=== PATIENT | female | born 1960 | race African-American/Black ===

== ENCOUNTER 2017-07-14 10:38 | Emergency (ER) | payer MEDICARE | END 2017-07-14 12:21 | disposition home or self-care (01) | LOC: ER/OP 10:38 | DX: B07.0 Plantar wart (principal); M25.511 Pain in right shoulder; E11.9 Type 2 diabetes mellitus without complications; E78.5 Hyperlipidemia, unspecified; I10 Essential (primary) hypertension | CPT/HCPCS: 99283 ==

== ENCOUNTER 2017-08-16 07:51 | Emergency (ER) | payer MEDICARE ==
--- NOTE | 2017-08-16 09:45 | RAD ---
RIGHT HIP 2 VIEWS: HISTORY: Right hip injury. FINDINGS: There is mild joint space narrowing with a moderate degree of osteophytosis and subchondral sclerosis . Femoral head contours are maintained. Enthesophytes arise from the greater and lesser trochanters . No acute fracture or dislocation are apparent. Phleboliths project over the pelvis. IMPRESSION: Osteoarthritis right hip. POS: [facility]
--- NOTE | 2017-08-16 09:45 | RAD ---
RIGHT SHOULDER 3 VIEWS: HISTORY: Right shoulder pain. COMPARISON: 11/21/11. FINDINGS: Acromioclavicular and glenohumeral alignment are maintained. There is prominent osteophytosis of eac h joint. No acute fracture, dislocation, or aggressive osseous erosions. IMPRESSION: Osteoarthritis right shoulder. POS: [facility]
== END 2017-08-16 10:41 | disposition home or self-care (01) ==
LOC: ERS 07:51
DX: M19.011 Primary osteoarthritis, right shoulder (principal); M16.11 Unilateral primary osteoarthritis, right hip; E11.40 Type 2 diabetes mellitus with diabetic neuropathy, unspecified; E78.5 Hyperlipidemia, unspecified; I25.2 Old myocardial infarction; F41.9 Anxiety disorder, unspecified; Z79.4 Long term (current) use of insulin; W17.89XA Other fall from one level to another, initial encounter

== ENCOUNTER 2017-12-24 08:15 | Emergency (ER) | payer MEDICARE ==
--- NOTE | 2017-12-24 09:57 | RAD ---
THREE VIEWS OF THE RIGHT 4TH FINGER: DATE: 12/24/17. COMPARISON: None. HISTORY: Right 4th finger pain for 3 weeks, injury. FINDINGS: Multifocal degenerative changes noted involving the 2nd and 3rd metacarpophalangeal joints as well as the 2nd through 4th proximal and distal interphalangeal joints. There is an osseous density along the dorsal aspect of the 4th distal interphalangeal joint suggestin g a small fracture involving the dorsal base of the 4th distal phalanx with proximal retraction, like ly associated with pull from the extensor tendon insertion. Orthopedic consultation may be beneficial. IMPRESSION: Small chip fracture along the dorsal aspect of the 4th distal interphalangeal joint, likely emanating from the base of the 4th distal phalanx with proximal retraction. POS: [facility]
== END 2017-12-24 09:57 | disposition home or self-care (01) ==
LOC: ERS 08:15
DX: S62.634A Displaced fracture of distal phalanx of right ring finger, initial encounter for closed fracture (principal); E11.40 Type 2 diabetes mellitus with diabetic neuropathy, unspecified; E78.5 Hyperlipidemia, unspecified; I25.2 Old myocardial infarction; F41.9 Anxiety disorder, unspecified; Z79.4 Long term (current) use of insulin; W22.8XXA Striking against or struck by other objects, initial encounter

== ENCOUNTER 2018-04-25 11:36 | Emergency (ER) | payer MEDICARE ==
[2018-04-25 12:10] LABS: #Basophils 0.1 thou/uL (0.0-0.2); #Eosinphils 0.1 thou/uL (0.0-0.7); #Lymphocytes 1.9 thou/uL (1.20-3.40); #Monocytes 0.3 thou/uL (0.11-0.59); #Neutrophils 1.6 thou/uL (1.40-6.50); %Basophils 1.9 % (0.0-1.0); %Eosinophils 1.5 % (0.0-10.0); %Lymphocytes 48.4 % (21.0-51.0); %Monocytes 7.4 % (0.0-10.0); %Neutrophils 40.8 % (42.0-75.0); Hemoglobin 11.7 g/dL (12.0-16.0); Mean Corpuscular HGB CONC 32.4 g/dL (32.0-36.0); Mean Corpuscular Hemoglobin 28.1 pg (27.0-31.0); Mean Corpuscular Volume 86.7 fL (78.0-98.0); Mean Platelet Volume 7.6 fL (7.4-10.4); Platelet Count 255 thou/uL (130-400); RBC Distribution Width 13.2 % (11.5-14.5); Red Blood Cell (RBC) Count 4.15 mill/uL (4.20-5.40); White Blood Cell (WBC) Count 3.9 thou/uL (4.8-10.8)
[2018-04-25 12:33] LABS: ALT (SGPT) 45 U/L (8-55); AST (SGOT) 47 U/L (5-34); Albumin 4.1 g/dL (3.5-5.0); Alkaline Phosphatase 70 U/L (40-150); Anion Gap 15 mmol/L (10-20); BUN (Urea Nitrogen) 7 mg/dL (9.8-20.1); Bilirubin, Total 0.2 mg/dL (0.2-1.2); CK (CPK) 259 U/L (29-168); Calc. Creatinine Clearance 0 mL/min (70-130); Calcium 9.3 mg/dL (7.8-10.44); Carbon Dioxide 19 mmol/L (22-29); Chloride 105 mmol/L (98-107); Estimated GFR-MDRD 82; Globulin 3.3 g/dL (2.4-3.5); Glucose 409 mg/dL (70-105); Lipase 36 U/L (8-78); Protein, Total 7.4 g/dL (6.0-8.3); Sodium 135 mmol/L (136-145)
[2018-04-25 12:37] LABS: CKMB 1.5 ng/mL (0-6.6); Troponin I Less than 0.010 ng/mL (< 0.028)
--- NOTE | 2018-04-25 12:49 | RAD ---
PORTABLE CHEST: Date: 04/25/18 PROVIDED CLINICAL HISTORY: Chest pain. FINDINGS: Comparison made with the study dated 06/15/16. Cardiac silhouette is mildly prominent, likely at least partially on the basis of portable technique. Median sternotomy changes are seen. No focal consolidation, pleural fluid, or pneumothorax apparent. IMPRESSION: No evidence for an acute cardiopulmonary process. POS: [facility]
[2018-04-25 14:03] LABS: Troponin I Less than 0.010 ng/mL (< 0.028)
--- NOTE | 2018-05-02 23:07 | EKG ---
Test Reason : Blood Pressure : / mmHG Vent. Rate : 086 BPM Atrial Rate : 086 BPM P-R Int : 154 ms QRS Dur : 082 ms QT Int : 392 ms P-R-T Axes : 038 -32 -36 degrees QTc Int : 469 ms Normal sinus rhythm Left axis deviation RSR' or QR pattern in V1 suggests right ventricular conduction delay Nonspecific T wave abnormality Prolonged QT Abnormal ECG Confirmed by STACI VEGA ([id number]), online editor ROBERT CALZADA ([id number]) on 05/02/2018 11:06:52 PM Referred By: Confirmed By:STACI VEGA
== END 2018-04-25 14:49 | disposition home or self-care (01) ==
LOC: ERS 11:36
DX: R07.9 Chest pain, unspecified (principal); R55 Syncope and collapse; E78.5 Hyperlipidemia, unspecified; E11.42 Type 2 diabetes mellitus with diabetic polyneuropathy; F41.9 Anxiety disorder, unspecified; I25.2 Old myocardial infarction; Z79.4 Long term (current) use of insulin
CPT/HCPCS: 36415; 71045; 80053; 82550; 82553; 83690; 84484; 85025; 93005

== ENCOUNTER 2018-07-06 09:39 | Emergency (ER) | payer MEDICARE ==
[2018-07-06 11:08] LABS: ALT (SGPT) 41 U/L (8-55); AST (SGOT) 42 U/L (5-34); Albumin 4.2 g/dL (3.5-5.0); Alkaline Phosphatase 63 U/L (40-150); Anion Gap 13 mmol/L (10-20); BUN (Urea Nitrogen) 7 mg/dL (9.8-20.1); Bilirubin, Total 0.4 mg/dL (0.2-1.2); Calc. Creatinine Clearance 0 mL/min (70-130); Calcium 9.2 mg/dL (7.8-10.44); Carbon Dioxide 24 mmol/L (22-29); Chloride 106 mmol/L (98-107); Estimated GFR-MDRD Greater than 90; Globulin 3.1 g/dL (2.4-3.5); Glucose 182 mg/dL (70-105); Potassium 3.6 mmol/L (3.5-5.1); Protein, Total 7.3 g/dL (6.0-8.3); Sodium 139 mmol/L (136-145)
[2018-07-06 11:14] LABS: Band 1 % (5-11); Eosinophils 3 % (0-10); Hemoglobin 11.3 g/dL (12.0-16.0); Lymphocytes 56 % (21-51); MDiff Complete? YES; Mean Corpuscular HGB CONC 33.3 g/dL (32.0-36.0); Mean Corpuscular Volume 84.1 fL (78.0-98.0); Mean Platelet Volume 7.5 fL (7.4-10.4); Monocytes 1 % (0-10); Neutrophil 37 % (42-75); PLT Morphology Comment Appears Adequate; Platelet Count 227 thou/uL (130-400); Polychromasia SLIGHT = 2-3 cells (100X) (0-2/hpf); RBC Distribution Width 12.9 % (11.5-14.5); Reactive Lymphocytes 1 % (0-10); Red Blood Cell (RBC) Count 4.03 mill/uL (4.20-5.40); White Blood Cell (WBC) Count 3.8 thou/uL (4.8-10.8)
--- NOTE | 2018-07-06 11:27 | RAD ---
LEFT FOOT 3 VIEWS: Date: 07/06/18 INDICATION: Healing ulcer on bottom of foot. COMPARISON: None. FINDINGS: The second through fourth digits are held in hyperextension at the MTP joints and flexion at the IP j oints, making evaluation somewhat difficult of these respective digits. There is smooth cortical thic kening involving the distal fourth metatarsal shaft, likely reflecting sequelae of healed injury. No acute fracture is grossly evident. Lisfranc alignment is preserved. An accessory ossicle is seen kaitlynn cent to the cuboid. There is prominent enthesopathic change off the calcaneus. No destructive osteoly sis is grossly evident. IMPRESSION: No acute abnormality. POS: [facility]
== END 2018-07-06 12:05 | disposition home or self-care (01) ==
LOC: ERS 09:39
DX: E11.621 Type 2 diabetes mellitus with foot ulcer (principal); I25.10 Atherosclerotic heart disease of native coronary artery without angina pectoris; I25.2 Old myocardial infarction; E11.40 Type 2 diabetes mellitus with diabetic neuropathy, unspecified; E78.5 Hyperlipidemia, unspecified; F41.9 Anxiety disorder, unspecified; L97.529 Non-pressure chronic ulcer of other part of left foot with unspecified severity
CPT/HCPCS: 36415; 80053; 80061; 85025; 86140

== ENCOUNTER 2018-07-31 08:50 | Emergency (ER) | payer MEDICARE | END 2018-07-31 10:54 | disposition home or self-care (01) | LOC: ERS 08:50 | DX: J30.9 Allergic rhinitis, unspecified (principal); J06.9 Acute upper respiratory infection, unspecified; I25.10 Atherosclerotic heart disease of native coronary artery without angina pectoris; I25.2 Old myocardial infarction; E11.40 Type 2 diabetes mellitus with diabetic neuropathy, unspecified; E78.5 Hyperlipidemia, unspecified; F41.9 Anxiety disorder, unspecified | CPT/HCPCS: 99283 ==

== ENCOUNTER 2018-11-06 14:33 | Outpatient (CLI) | payer MEDICARE ==
--- NOTE | 2018-11-06 15:19 | MMO ---
Bilateral MAMMO Bilat Screen [facility]. CLINICAL HISTORY: Patient is 58 years old and is seen for screening. The patient has no family history of breast cancer. The patient has no personal history of cancer. The patient has a history of left Excisional Biopsy in 2016 - benign. VIEWS: The views performed were: bilateral craniocaudal; bilateral craniocaudal with tomosynthesis; bilateral mediolateral oblique; and bilateral mediolateral oblique with tomosynthesis. FILMS COMPARED: The present examination has been compared to prior imaging studies performed at [facility] on 04/13/2012, 09/14/2013, 07/05/2015, 08/24/2015 and 07/14/2017. MAMMOGRAM FINDINGS: There are scattered fibroglandular densities. Finding 1: There are stable post operative changes seen in the left breast. Finding 2: There are stable benign appearing calcifications seen in both breasts. There are no suspicious masses, suspicious calcifications, or new areas of architectural distortion. IMPRESSION: THERE IS NO MAMMOGRAPHIC EVIDENCE OF MALIGNANCY. A ROUTINE FOLLOW-UP MAMMOGRAM IN 1 YEAR IS RECOMMENDED. THE RESULTS OF THIS EXAM WERE SENT TO THE PATIENT. ACR BI-RADS Category 2 - Benign finding MAMMOGRAPHY NOTE: 1. A negative mammogram report should not delay a biopsy if a dominant of clinically suspicious mass is present. 2. Approximately 10% to 15% of breast cancers are not detected by mammography. 3. Adenosis and dense breasts may obscure an underlying neoplasm.
== END 2018-11-06 14:34 | disposition home or self-care (01) ==
LOC: BICMAMMO 14:33
PROVIDERS: ATTEND Family Medicine
DX: Z12.31 Encounter for screening mammogram for malignant neoplasm of breast (principal)
CPT/HCPCS: 77063; 77067

== ENCOUNTER 2019-12-23 10:40 | Outpatient (CLI) | payer MEDICARE ==
--- NOTE | 2019-12-23 13:03 | MMO ---
Bilateral MAMMO Bilat Screen [facility]. CLINICAL HISTORY: Patient is 59 years old and is seen for screening. The patient has no family history of breast cancer. The patient has no personal history of cancer. The patient has a history of left Excisional Biopsy in 2016 - benign. VIEWS: The views performed were: bilateral craniocaudal with tomosynthesis and bilateral mediolateral oblique with tomosynthesis. FILMS COMPARED: The present examination has been compared to prior imaging studies performed at [facility] on 07/05/2015, 08/24/2015, 07/14/2017 and 11/06/2018. This study has been interpreted with the assistance of computer-aided detection. MAMMOGRAM FINDINGS: There are scattered fibroglandular densities. Finding 1: There are stable benign appearing calcifications seen in both breasts. Finding 2: There are stable benign appearing densities seen in both breasts. There are no suspicious masses, suspicious calcifications, or new areas of architectural distortion. IMPRESSION: THERE IS NO MAMMOGRAPHIC EVIDENCE OF MALIGNANCY. A ROUTINE FOLLOW-UP MAMMOGRAM IN 1 YEAR IS RECOMMENDED. THE RESULTS OF THIS EXAM WERE SENT TO THE PATIENT. ACR BI-RADS Category 2 - Benign finding MAMMOGRAPHY NOTE: 1. A negative mammogram report should not delay a biopsy if a dominant of clinically suspicious mass is present. 2. Approximately 10% to 15% of breast cancers are not detected by mammography. 3. Adenosis and dense breasts may obscure an underlying neoplasm. Reported by: HARPAL BENSON MD Electonically Signed: [id number]
== END 2019-12-23 10:41 | disposition home or self-care (01) ==
LOC: BICMAMMO 10:40
PROVIDERS: ATTEND Family Medicine
DX: Z12.31 Encounter for screening mammogram for malignant neoplasm of breast (principal); Z91.89 Other specified personal risk factors, not elsewhere classified
CPT/HCPCS: 77063; 77067

== ENCOUNTER 2019-12-31 20:19 | Emergency (ER) | payer MEDICARE ==
--- NOTE | 2019-12-31 21:04 | RAD ---
EXAM: CHEST ONE VIEW HISTORY: Heart palpitations. COMPARISON: 04/25/2018 FINDINGS: Postsurgical changes related to CABG are again noted. The cardiac silhouette is magnified by projecti on. Pulmonary vasculature is within normal limits. The lungs are clear. Degenerative changes are again seen in the spine. IMPRESSION: No acute cardiopulmonary process.
[2019-12-31] MEDS ORDERED: Aspirin 325 MG TAB ONE (21:18)
[2019-12-31] MEDS ORDERED: Aspirin Chewable 81 MG TAB ONE (21:18)
[2019-12-31 21:20] LABS: Hemoglobin 11.3 g/dL (12.0-16.0); Lymphocytes 62 % (21-51); MDiff Complete? YES; Mean Corpuscular HGB CONC 33.3 g/dL (32.0-36.0); Mean Corpuscular Hemoglobin 27.9 pg (27.0-31.0); Mean Corpuscular Volume 83.7 fL (78.0-98.0); Mean Platelet Volume 7.6 fL (7.4-10.4); Monocytes 6 % (0-10); Neutrophil 32 % (42-75); Platelet Count 232 thou/uL (130-400); Platelet Morphology Comment Appears Adequate; RBC Distribution Width 13.8 % (11.5-14.5); Red Blood Cell (RBC) Count 4.07 mill/uL (4.20-5.40); White Blood Cell (WBC) Count 3.7 thou/uL (4.8-10.8)
[2019-12-31 21:21] LABS: ALT (SGPT) 64 U/L (8-55); AST (SGOT) 56 U/L (5-34); Albumin 4.2 g/dL (3.5-5.0); Alkaline Phosphatase 70 U/L (40-110); Anion Gap 16 mmol/L (10-20); BUN (Urea Nitrogen) 8 mg/dL (9.8-20.1); Bilirubin, Total 0.3 mg/dL (0.2-1.2); CK (CPK) 268 U/L (29-168); Calc. Creatinine Clearance 0 mL/min (70-130); Calcium 9.5 mg/dL (7.8-10.44); Carbon Dioxide 22 mmol/L (22-29); Chloride 104 mmol/L (98-107); Estimated GFR-MDRD 85; Globulin 3.2 g/dL (2.4-3.5); Glucose 306 mg/dL (70-105); Potassium 3.8 mmol/L (3.5-5.1); Protein, Total 7.4 g/dL (6.0-8.3); Sodium 138 mmol/L (136-145)
== END 2019-12-31 22:32 | disposition home or self-care (01) ==
LOC: ERS 20:19
DX: R00.2 Palpitations (principal); E11.65 Type 2 diabetes mellitus with hyperglycemia; I25.10 Atherosclerotic heart disease of native coronary artery without angina pectoris; I25.2 Old myocardial infarction; E78.5 Hyperlipidemia, unspecified; E78.00 Pure hypercholesterolemia, unspecified; F41.9 Anxiety disorder, unspecified; Z79.4 Long term (current) use of insulin; Z79.899 Other long term (current) drug therapy
CPT/HCPCS: 36415; 71045; 80053; 82550; 84484; 85025; 93005; 96360

== ENCOUNTER 2020-04-17 14:26 | Inpatient (IN) | payer MEDICARE ==
[2020-04-17 15:44] LABS: Hemoglobin 11.5 g/dL (12.0-16.0); Mean Corpuscular HGB CONC 33.8 g/dL (32.0-36.0); Mean Corpuscular Hemoglobin 27.9 pg (27.0-31.0); Mean Corpuscular Volume 82.6 fL (78.0-98.0); Mean Platelet Volume 7.5 fL (7.4-10.4); Platelet Count 263 thou/uL (130-400); RBC Distribution Width 13.5 % (11.5-14.5); Red Blood Cell (RBC) Count 4.12 mill/uL (4.20-5.40); White Blood Cell (WBC) Count 4.8 thou/uL (4.8-10.8)
[2020-04-17 16:03] LABS: ALT (SGPT) 66 U/L (8-55); AST (SGOT) 55 U/L (5-34); Albumin 4.3 g/dL (3.5-5.0); Alkaline Phosphatase 66 U/L (40-110); Anion Gap 14 mmol/L (10-20); BUN (Urea Nitrogen) 9 mg/dL (9.8-20.1); Bilirubin, Total 0.3 mg/dL (0.2-1.2); CK (CPK) 240 U/L (29-168); Calc. Creatinine Clearance 0 mL/min (70-130); Calcium 9.5 mg/dL (7.8-10.44); Carbon Dioxide 24 mmol/L (22-29); Chloride 101 mmol/L (98-107); Estimated GFR-MDRD 62; Globulin 3.6 g/dL (2.4-3.5); Glucose 243 mg/dL (70-105); Potassium 4.2 mmol/L (3.5-5.1); Protein, Total 7.9 g/dL (6.0-8.3); Sodium 135 mmol/L (136-145)
[2020-04-17 16:06] LABS: Eosinophils 1 % (0-10); Lymphocytes 55 % (21-51); MDiff Complete? YES; Monocytes 8 % (0-10); Neutrophil 35 % (42-75); Ovalocytes SLIGHT = 2-5 cells (100X) (0-1/hpf); Platelet Morphology Comment Appears Adequate; Polychromasia SLIGHT = 2-3 cells (100X) (0-2/hpf); Reactive Lymphocytes 1 % (0-10)
--- NOTE | 2020-04-17 17:28 | RAD ---
PORTABLE CHEST: History: Chest pain, shortness of breath. Comparison: 12-31-2019 FINDINGS: Heart size and mediastinum within normal limits with post op sternotomy changes. The lungs are clear of infiltrates. No bony findings. IMPRESSION: No active intrathoracic disease. POS: [facility]
[2020-04-17] MEDS ORDERED: Acetaminophen 650 MG Suppository PR PRN (18:32)
[2020-04-17] MEDS ORDERED: Acetaminophen 325 MG TAB PO PRN (18:32)
[2020-04-17] MEDS ORDERED: Nitroglycerin 0.4 MG TAB (25 Tab Bottle) SL PRN (18:35)
[2020-04-17] MEDS ORDERED: Dextrose 5% in Water 1,000 ML IV PRN (18:40)
[2020-04-17] MEDS ORDERED: HumaLOG 300 UNITS/3 ML VIAL SC PRN (18:40)
[2020-04-17] MEDS ORDERED: Dextrose 50% Abboject 50 ML SYRINGE SLOW IVP PRN (18:40)
--- NOTE | 2020-04-17 19:20 | PDOC.HHP ---
Hospitalist HPI - History of Present Illness Chest pain History of Present Illness: Patient presented to the ED after having an episode of chest pain that started while she was sitting down. She states it was on the left side of her chest which was nonradiating. States it lasted approximately 8 minutes and was stabbing in nature. She took nitro and it resolved quickly after. She has not had any recurring pain since and denies having any chest pain in recent days. Denies any associated shortness of breath. No cough or hemoptysis. Denies any fevers or chills. She has a hx of CAD, previously had a stent placed and reports a strong family history of CAD in her mother and both sisters. This prompted her to come in for further evaluation as she has not had cardiac work- up since 2016. She is known to Dr. Montenegro. Last Echo was in 05/2016 which showed 1. Mildly reduced systolic function, EF of 40-45%, with regional wall motion abnormalities as above. 2. Grade I/III diastolic dysfunction. 3. Left atrial enlargement. 4. Mild AI. 5. Mild MR. She has had to wear a LifeVest in the past due to ventricular arrhythmia. ROS: Denies any associated n/v. States she is active around her home and has not had any episodes like today. Reports having a procedure on the lateral right 1st toe due to an ulcer that resulted in protrusion of the bone, this was removed and she had sutures placed which were removed today. She has had wound dressings changes by a nurse that comes to her home twice a week. No signs or symptoms of infection. Told it was healing nicely during her follow-up today. Reports discomfort in her left hip and thinks it is due to adding pressure on her left side after walking with a boot on her right foot. Denies any fall or injury. No extremity weakness. All other review of systems are negative. ED COURSE: She was given 325 mg of Aspirin en route to the hospital. EKG showed normal sinus rhythm with a rate 90, LA 156, cures duration of 84, QTC of 467, cures axis -26 with T wave flattening in the lateral leads. [place] is normal ST segments are normal conduction is normal. Nonspecific EKG. CXR done was unremarkable. Labs showed a normal troponin. She had mild transaminitis. WCC 4.8, Hgb 11.5, Hct 34, Platelet 263. Neutrophils 35. BUN 9, Creat 1.10, GFR 62. CK 240. Patient remained pain free in the ED. No further medications given. She is admitted for ACS rule out. PAST MEDICAL HISTORY: 1. Hx of ventricular arrhythmia, requiring LifeVest at home for a period of t rhiannon. 2. CAD. 3. Diabetes mellitus. 4. Hypertension. 5. Dyslipidemia. 6. Morbid obesity. 7. Anxiety. 8. Sleep apnea. 9. PVD. PAST SURGICAL HISTORY: 1. Hx of cardiac cath with stent placement to LCx in 05/2016. 2. CABG x [address] Foreman, 02/01/2016. 3. Hysterectomy. 4. Tubal ligation. 5. Gastric bypass. 6. S/p cavotricuspid isthmus ablation for Atrial flutter by Dr. Gupta on 06/19/2016. SOCIAL HISTORY: No history of tobacco use, alcohol consumption or drug use. She is fully independent and lives with her family. FAMILY HISTORY: Mother had CAD and suffered a massive NH in her 60s, her two sisters have CAD and both had stents placed in their 60s. ALLERGIES: No known drug allergies. CURRENT MEDICATIONS: 1. Levemir. 2. Metformin. 3. Humalog. 4. Crestor. 5. Duvoid. - Exam General Appearance: NAD, awake alert Eye: PERRL, anicteric sclera ENT: normocephalic atraumatic, no oropharyngeal lesions Neck: supple, symmetric, no lymphadenopathy Heart: RRR, no murmur, normal peripheral pulses Respiratory: CTAB, no wheezes, no rales, normal chest expansion, no tachypnea Gastrointestinal: soft, non-tender, non-distended, normal bowel sounds, no guarding, no rigidity Extremities: no edema Skin: normal turgor, no lesions, no rashes Neurological: cranial nerve grossly intact, normal sensation to touch Musculoskeletal: normal tone, normal strength, no muscle wasting Psychiatric: normal affect, normal behavior, A&O x 3 Hospitalist Results - Labs Result Diagrams: 04/17/20 15:26 04/17/20 15:26 Lab results: WBC 4.8 thou/uL (4.8-10.8) 04/17/20 15:26 Hgb 11.5 g/dL (12.0-16.0) L 04/17/20 15:26 Hct 34.0 % (36.0-47.0) L 04/17/20 15:26 MCV 82.6 fL (78.0-98.0) 04/17/20 15:26 Plt Count 263 thou/uL (130-400) 04/17/20 15:26 Sodium 135 mmol/L (136-145) L 04/17/20 15:26 Potassium 4.2 mmol/L (3.5-5.1) 04/17/20 15:26 Chloride 101 mmol/L (98-107) 04/17/20 15:26 Carbon Dioxide 24 mmol/L (22-29) 04/17/20 15:26 BUN 9 mg/dL (9.8-20.1) L 04/17/20 15:26 Creatinine 1.10 mg/dL (0.6-1.1) 04/17/20 15:26 Glucose 243 mg/dL (70-105) H 04/17/20 15:26 Calcium 9.5 mg/dL (7.8-10.44) 04/17/20 15:26 Total Bilirubin 0.3 mg/dL (0.2-1.2) 04/17/20 15:26 AST 55 U/L (5-34) H 04/17/20 15:26 ALT 66 U/L (8-55) H 04/17/20 15:26 Alkaline Phosphatase 66 U/L (40-110) 04/17/20 15:26 Creatine Kinase 240 U/L (29-168) H 04/17/20 15:26 Troponin I Less than 0.010 ng/mL (< 0.028) 04/17/20 15:26 Serum Total Protein 7.9 g/dL (6.0-8.3) 04/17/20 15:26 Albumin 4.3 g/dL (3.5-5.0) 04/17/20 15:26 - Radiology Interpretation Chest x-ray Status: report reviewed by sd Hospitalist H&P A/P - Problem (1) Transaminitis Code(s): R74.01 - ELEVATION OF LEVELS OF LIVER TRANSAMINASE LEVELS Status: Acute (2) Obesity Code(s): E66.9 - OBESITY, UNSPECIFIED Status: Acute (3) Chest pain Code(s): R07.9 - CHEST PAIN, UNSPECIFIED Status: Acute Qualifiers: Chest pain type: chest pain due to myocardial ischemia (4) Anxiety Code(s): F41.9 - ANXIETY DISORDER, UNSPECIFIED Status: Chronic (5) CAD (coronary artery disease) Code(s): I25.10 - ATHSCL HEART DISEASE OF [place] CORONARY ARTERY W/O ANG PCTRS Status: Chronic Qualifiers: Coronary Disease-Associated Artery/Lesion type: [place] artery [place] vs. transplanted heart: [place] heart Associated angina: with other forms of angina Qualified Code(s): I25.118 - Atherosclerotic heart disease of [place] coronary artery with other forms of angina pectoris (6) DM (diabetes mellitus), type 2, uncontrolled Code(s): E11.65 - TYPE 2 DIABETES MELLITUS WITH HYPERGLYCEMIA Status: Chronic (7) Dyslipidemia Code(s): E78.5 - HYPERLIPIDEMIA, UNSPECIFIED Status: Chronic (8) Hypertension Code(s): I10 - ESSENTIAL (PRIMARY) HYPERTENSION Status: Chronic Qualifiers: Hypertension type: essential hypertension - Plan Plan: Continue cardiac monitoring Trend troponins. Lipid panel in the AM. Check TSH and Mg+. Repeat LFTs in the AM. NPO after midnight with plans for stress test in the morning. Follow-up on hip xray done in ED. Monitor glucose. ISS initiated. Hold Metformin. Resume home medications once verified. CODE STATUS FULL Surrogate decision maker: Melonie Jama PCP: Dr. Benjamin
[2020-04-17 19:35] LABS: Troponin I Less than 0.010 ng/mL (< 0.028)
--- NOTE | 2020-04-17 20:01 | RAD ---
TWO VIEWS LEFT HIP: Comparison: 04-12-10 History: Left hip pain. FINDINGS: Two views of the left hip shows no evidence of acute fracture or dislocation. Mild degenerative coy es are seen in the left hip. Phleboliths are seen in the pelvis. Mild to moderate degenerative change is seen in the right hip. IMPRESSION: Degenerative changes of the left hip without acute osseous abnormality. POS: [facility]
[2020-04-17] MEDS: Famotidine 20 MG TAB PO SCH (21:37)
[2020-04-17 21:40] VITALS: BMI 39.0
[2020-04-17 22:25] LABS: Troponin I Less than 0.010 ng/mL (< 0.028)
[2020-04-18 05:34] LABS: Anion Gap 11 mmol/L (10-20); BUN (Urea Nitrogen) 12 mg/dL (9.8-20.1); Calc. Creatinine Clearance 129 mL/min (70-130); Calcium 9.3 mg/dL (7.8-10.44); Carbon Dioxide 28 mmol/L (22-29); Cardiac Risk 2.8 (Less than 4.5); Chloride 103 mmol/L (98-107); Cholesterol 105 mg/dl (< 200 Desired); Estimated GFR-MDRD 86; Glucose 247 mg/dL (70-105); HDL Cholesterol 37 mg/dL (>60 Neg Risk); LDL Cholesterol, Calculated 36 mg/dL; Potassium 3.8 mmol/L (3.5-5.1); Sodium 138 mmol/L (136-145); Triglycerides 159 mg/dL (Less than 150)
[2020-04-18 05:42] LABS: Hemoglobin 10.4 g/dL (12.0-16.0); Mean Corpuscular HGB CONC 32.6 g/dL (32.0-36.0); Mean Corpuscular Hemoglobin 26.9 pg (27.0-31.0); Mean Corpuscular Volume 82.5 fL (78.0-98.0); Mean Platelet Volume 7.6 fL (7.4-10.4); Platelet Count 229 thou/uL (130-400); RBC Distribution Width 13.6 % (11.5-14.5); Red Blood Cell (RBC) Count 3.88 mill/uL (4.20-5.40); White Blood Cell (WBC) Count 4.2 thou/uL (4.8-10.8)
[2020-04-18 05:43] LABS: Eosinophils 2 % (0-10); Lymphocytes 54 % (21-51); MDiff Complete? YES; Monocytes 7 % (0-10); Neutrophil 37 % (42-75); Platelet Morphology Comment Appears Adequate
[2020-04-18] MEDS: HumaLOG 300 UNITS/3 ML VIAL SC PRN ×3 (05:57→17:21)
[2020-04-18] MEDS: Famotidine 20 MG TAB PO SCH ×2 (07:49→20:21)
[2020-04-18] MEDS: Aspirin 325 mg Enteric Coated Tablet PO SCH (07:49)
[2020-04-18] MEDS ORDERED: Regadenoson 0.4 MG/5 ML SYRINGE ONE (10:41)
[2020-04-18 11:26] LABS: ALT (SGPT) 65 U/L (8-55); AST (SGOT) 50 U/L (5-34); Albumin 3.7 g/dL (3.5-5.0); Alkaline Phosphatase 64 U/L (40-110); Bilirubin, Direct 0.2 mg/dL (0.1-0.3); Bilirubin, Total 0.3 mg/dL (0.2-1.2); Protein, Total 7.3 g/dL (6.0-8.3)
--- NOTE | 2020-04-18 12:59 | PDOC.HOSPP ---
- Subjective Encounter Date: 04/18/20 Encounter Time: 12:00 Subjective: Patient is seen for follow-up on chest pain and hypertension. She states that she is feeling great and had the first part of her stress test today. She is awaiting the second part of her stress test tomorrow. She remains pain-free at this time with no new complaints. - Objective Vital Signs & Weight: Vital Signs (12 hours) Temp Pulse Pulse Pulse Resp BP BP 04/18/20 10:53 98.8 F 84 18 04/18/20 10:45 93 96 120/74 134/71 04/18/20 07:41 97.9 F 79 18 04/18/20 04:00 98.2 F 80 18 BP BP Pulse Ox 04/18/20 10:53 113/64 99 04/18/20 10:45 04/18/20 07:41 117/64 99 04/18/20 04:00 117/65 99 Weight Weight 241 lb 12.8 oz I&O: 04/17/20 04/18/20 04/19/20 06:59 06:59 06:59 Intake Total 240 Output Total 525 Balance -285 Result Diagrams: 04/18/20 05:00 04/18/20 05:00 Additional Labs: Accuchecks 04/18/20 04/17/20 10:56 21:36 POC Glucose 249 H 251 H Hospitalist ROS - Medication Medications: Active Medications Generic Name Dose Route Start Last Admin Trade Name Freq PRN Reason Stop Dose Admin Acetaminophen 650 mg 04/17/20 18:32 04/18/20 02:25 Acetaminophen 325 Mg Tab PO 650 mg Q4H PRN Administration Headache/Fever/Mild Pain (1-3) Aspirin 325 mg 04/18/20 09:00 04/18/20 07:49 Aspirin 325 Mg Enteric Coated Tablet PO 325 mg DAILY JOE Administration Famotidine 20 mg 04/17/20 21:00 04/18/20 07:49 Famotidine 20 Mg Tab PO 20 mg BID JOE Administration Insulin Human Lispro 0 units 04/17/20 18:40 04/18/20 12:05 Humalog 300 Units/3 Ml Vial SC 3 unit .MILD SLIDING SCALE PRN Administration Mild Correctional Scale Insulin Human Lispro 0 units 04/17/20 18:40 04/17/20 22:29 Humalog 300 Units/3 Ml Vial SC 2 unit .BEDTIME SLIDING SC PRN Administration Bedtime Correctional Scale - Exam General Appearance: NAD, awake alert Neck: supple Heart: RRR, no murmur, no gallops, no rubs, normal peripheral pulses Respiratory: CTAB, no wheezes, no rales, no ronchi, normal chest expansion Gastrointestinal: soft, non-tender, non-distended, normal bowel sounds Extremities: no edema Hosp A/P (1) Chest pain Code(s): R07.9 - CHEST PAIN, UNSPECIFIED Status: Acute Qualifiers: Chest pain type: chest pain due to myocardial ischemia (2) Obesity Code(s): E66.9 - OBESITY, UNSPECIFIED Status: Chronic Qualifiers: Obesity classification: adult class 2 (BMI 35 - 39.9) (3) Anxiety Code(s): F41.9 - ANXIETY DISORDER, UNSPECIFIED Status: Chronic (4) CAD (coronary artery disease) Code(s): I25.10 - ATHSCL HEART DISEASE OF [place] CORONARY ARTERY W/O ANG PCTRS Status: Chronic Qualifiers: Coronary Disease-Associated Artery/Lesion type: [place] artery [place] vs. transplanted heart: [place] heart Associated angina: with other forms of angina Qualified Code(s): I25.118 - Atherosclerotic heart disease of [place] coronary artery with other forms of angina pectoris (5) DM (diabetes mellitus), type 2, uncontrolled Code(s): E11.65 - TYPE 2 DIABETES MELLITUS WITH HYPERGLYCEMIA Status: Chronic (6) Dyslipidemia Code(s): E78.5 - HYPERLIPIDEMIA, UNSPECIFIED Status: Chronic (7) Hypertension Code(s): I10 - ESSENTIAL (PRIMARY) HYPERTENSION Status: Chronic Qualifiers: Hypertension type: essential hypertension - Plan Continue telemetry monitoring No further complaints of chest pain Continue monitor vital signs every 4 hours Resting part of stress test in the morning Monitor Accu-Cheks AC at bedtime, home insulin restarted Sliding scale insulin ordered, continue to hold Metformin Restart patient on her home medications
[2020-04-18] MEDS: Insulin Glargine 32 UNITS in Pre-Filled Syringe 1 EACH SC SCH (20:22)
[2020-04-18] MEDS ORDERED: Rosuvastatin 10 MG TAB PO SCH (21:00)
[2020-04-18] MEDS ORDERED: Non-Formulary Item 1 EACH (Insulin Detemir 100 Units/Ml [Levemir] 100 UNITS/ML Vial) SC SCH (21:00)
[2020-04-19] MEDS: HumaLOG 300 UNITS/3 ML VIAL SC PRN (04:34)
[2020-04-19 07:17] VITALS: BP 103/60; TEMP 98.6
[2020-04-19] MEDS: Aspirin 325 mg Enteric Coated Tablet PO SCH (07:54)
[2020-04-19] MEDS: Famotidine 20 MG TAB PO SCH (07:54)
[2020-04-19] MEDS: Insulin Glargine 32 UNITS in Pre-Filled Syringe 1 EACH SC SCH (07:56)
--- NOTE | 2020-04-19 09:31 | NM ---
Exam: Nuclear medicine cardiac stress with EF and wall motion COMPARISON: 09/17/2013 HISTORY: Coronary disease. Status post CABG. Status post ablation. TECHNIQUE: Patient was administered 28.70 mCi of technetium 99m sestamibi for rest imaging and 29.60 mCi of technetium 90 9M sestamibi for stress imaging. Cardiac gating is performed FINDINGS: There is homogeneous distribution of the radiotracer in the left ventricle on the attenuate d corrected images. No reversibility or fixed defect 1.02 TID End-diastolic volume is 80 mL End-systolic volume is 32 mL Cardiac gating: Normal wall motion and thickening. 60% ejection fraction IMPRESSION: 1. No reversibility or fixed defect. 2. 60% ejection fraction
--- NOTE | 2020-04-19 14:58 | DIS ---
DATE OF ADMISSION: 04/18/2020 DATE OF DISCHARGE: 04/19/2020 DISCHARGE DISPOSITION AND FOLLOWUP: The patient discharged home. The patient was seen and examined on the day of discharge. Denies any new complaints. She is to follow up with her PCP. INPATIENT CONSULTS: None. BRIEF CLINICAL COURSE: The patient is a 59-year-old female with past medical history significant for CAD, diabetes, hypertension, dyslipidemia, morbid obesity, and history of ventricular arrhythmia. She presented to the ER after having an episode of chest pain that started while she was sitting down. It was on the left side of her chest and nonradiating, that lasted approximately 8 minutes and was stabbing in nature. She took nitroglycerin and it quickly resolved. She has had no recurring chest pain since. She denied any shortness of breath, cough, hemoptysis, fever, or chills. She was monitored on telemetry. Trended her troponins. They were all negative. She did complete a Cardiolite stress test, which was also negative. It showed no reversibility or fixed defect with a 60% ejection fraction. On the day of discharge, she stated she was feeling "great" and ready to go home. FINAL DIAGNOSES: 1. Chest pain. 2. Obesity. 3. Anxiety. 4. Coronary artery disease. 5. Diabetes type 2. 6. Dyslipidemia. 7. Hypertension. DISCHARGE MEDICATIONS: The patient was to continue all of her home medications. No changes were made to them. DISCHARGE INSTRUCTIONS: Discussed with the patient her test results. She stated she felt comfortable going home. She is to return to the ER with any returns of the chest pain and take her medication as instructed. TIME SPENT: Total time coordinating the discharge of this patient was 25 minutes. The patient was discussed with Dr. Andrews prior to discharge, and he agreed with the plan of care and discharge plan. Job ID: [id number]
== END 2020-04-19 11:53 | disposition home or self-care (01) | DRG 313 ==
LOC: ERS 14:26 → 2SW 18:17 → OBSVTOIN 04-18 15:53
PROVIDERS: ADMIT Internal Medicine; ATTEND Internal Medicine
DX: R07.9 Chest pain, unspecified (principal); F41.9 Anxiety disorder, unspecified; E78.5 Hyperlipidemia, unspecified; I10 Essential (primary) hypertension; I73.9 Peripheral vascular disease, unspecified; G47.30 Sleep apnea, unspecified; I25.118 Atherosclerotic heart disease of native coronary artery with other forms of angina pectoris; E66.01 Morbid (severe) obesity due to excess calories; R74.01 Elevation of levels of liver transaminase levels; E11.65 Type 2 diabetes mellitus with hyperglycemia; Z68.39 Body mass index [BMI] 39.0-39.9, adult; Z95.1 Presence of aortocoronary bypass graft; Z95.5 Presence of coronary angioplasty implant and graft; Z90.710 Acquired absence of both cervix and uterus; Z98.84 Bariatric surgery status; Z98.51 Tubal ligation status; Z79.84 Long term (current) use of oral hypoglycemic drugs; I25.2 Old myocardial infarction
CPT/HCPCS: 36415; 36416; 71045; 78452; 80048; 80053; 80061; 80076; 82550; 83690; 83735; 84443; 84484; 85025; 93005; 93017; 94760; A9500; G0378; J1815; J2785

== ENCOUNTER 2020-07-08 09:32 | Emergency (ER) | payer MEDICARE ==
[2020-07-08 16:54] LABS: SARS-CoV-2 MS2 Negative; SARS-CoV-2 N Gene Positive; SARS-CoV-2 S Gene Positive; SARS-CoV-2 by NAA DETECTED (NotDetected); SARS-CoV-2 orf1ab Positive
== END 2020-07-08 10:10 | disposition home or self-care (01) ==
LOC: ERS 09:32
DX: U07.1 COVID-19 (principal); I25.2 Old myocardial infarction; E11.40 Type 2 diabetes mellitus with diabetic neuropathy, unspecified; E78.5 Hyperlipidemia, unspecified
CPT/HCPCS: 87635; 99283; U0003

== ENCOUNTER 2020-07-12 20:14 | Emergency (ER) | payer MEDICARE ==
[2020-07-12] MEDS ORDERED: Acetaminophen 500 MG TAB ONE (20:28)
[2020-07-12] MEDS ORDERED: Dexamethasone 10 MG/ML VIAL ONE (20:56)
--- NOTE | 2020-07-12 21:30 | RAD ---
CHEST ONE VIEW: 07/12/20 HISTORY: Cough. COVID positive. COMPARISON: 04/17/20. FINDINGS: The cardiac silhouette is magnified by projection. Shallow inspiration accentuates pulmonary markings . Mediastinum is midline with postoperative changes. Ill-defined patchy predominantly peripheral areas of ground glass infiltrate are apparent. No lobar consolidation or pneumothorax. IMPRESSION: Multifocal ground glass infiltrates. Correlate for COVID pneumonitis. POS: [facility]
[2020-07-12] MEDS ORDERED: Azithromycin 500 MG VIAL ONE (22:10)
[2020-07-12 22:11] LABS: #Lymphocytes 1.1 thou/uL (1.20-3.40); #Monocytes 0.3 thou/uL (0.11-0.59); #Neutrophils 3.5 thou/uL (1.40-6.50); %Basophils 0.2 % (0.0-1.0); %Eosinophils 0.1 % (0.0-10.0); %Lymphocytes 22.3 % (21.0-51.0); %Monocytes 5.8 % (0.0-10.0); %Neutrophils 71.5 % (42.0-75.0); Hemoglobin 10.7 g/dL (12.0-16.0); Mean Corpuscular HGB CONC 32.8 g/dL (32.0-36.0); Mean Corpuscular Hemoglobin 27.6 pg (27.0-31.0); Mean Platelet Volume 7.6 fL (7.4-10.4); Platelet Count 227 thou/uL (130-400); RBC Distribution Width 13.9 % (11.5-14.5); Red Blood Cell (RBC) Count 3.89 mill/uL (4.20-5.40); White Blood Cell (WBC) Count 4.9 thou/uL (4.8-10.8)
[2020-07-12 22:32] LABS: ALT (SGPT) 32 U/L (8-55); AST (SGOT) 44 U/L (5-34); Alkaline Phosphatase 46 U/L (40-110); Anion Gap 19 mmol/L (10-20); BUN (Urea Nitrogen) 11 mg/dL (9.8-20.1); Bilirubin, Total 0.5 mg/dL (0.2-1.2); Calc. Creatinine Clearance 0 mL/min (70-130); Calcium 8.6 mg/dL (7.8-10.44); Carbon Dioxide 25 mmol/L (22-29); Chloride 99 mmol/L (98-107); Globulin 3.3 g/dL (2.4-3.5); Glucose 136 mg/dL (70-105); Potassium 3.7 mmol/L (3.5-5.1); Protein, Total 7.3 g/dL (6.0-8.3); Sodium 139 mmol/L (136-145)
== END 2020-07-12 23:26 | disposition home or self-care (01) ==
LOC: ERS 20:14
DX: J18.9 Pneumonia, unspecified organism (principal); I25.2 Old myocardial infarction; E11.40 Type 2 diabetes mellitus with diabetic neuropathy, unspecified; E78.5 Hyperlipidemia, unspecified; Z79.4 Long term (current) use of insulin
CPT/HCPCS: 36415; 71045; 80053; 83605; 83880; 84484; 85025; 94760; 96365; 96375; J0456; J1100

== ENCOUNTER 2020-09-01 10:08 | Outpatient (CLI) | payer MEDICARE | END 2020-09-01 10:09 | disposition home or self-care (01) | LOC: BICRAD 10:08 | PROVIDERS: ATTEND Family Medicine | DX: R93.89 Abnormal findings on diagnostic imaging of other specified body structures (principal); R91.8 Other nonspecific abnormal finding of lung field | CPT/HCPCS: 71046 ==

== ENCOUNTER 2020-10-31 10:22 | Outpatient (CLI) | payer MEDICARE | END 2020-10-31 10:23 | disposition home or self-care (01) | LOC: BICRAD 10:22 | PROVIDERS: ATTEND Internal Medicine Critical Care Medicine | DX: R06.00 Dyspnea, unspecified (principal) | CPT/HCPCS: 71046 ==

== ENCOUNTER 2020-12-26 08:17 | Outpatient (CLI) | payer MEDICARE | END 2020-12-26 08:18 | disposition home or self-care (01) | LOC: BICMAMMO 08:17 | PROVIDERS: ATTEND Family Medicine | DX: Z12.31 Encounter for screening mammogram for malignant neoplasm of breast (principal); Z91.89 Other specified personal risk factors, not elsewhere classified | CPT/HCPCS: 77063; 77067 ==

== ENCOUNTER 2021-01-04 10:50 | Emergency (ER) | payer MEDICARE ==
[2021-01-04 11:29] LABS: Hemoglobin 11.1 g/dL (12.0-16.0); Mean Corpuscular HGB CONC 34.5 g/dL (32.0-36.0); Mean Corpuscular Hemoglobin 29.2 pg (27.0-31.0); Mean Corpuscular Volume 84.7 fL (78.0-98.0); Mean Platelet Volume 7.3 fL (7.4-10.4); Platelet Count 233 thou/uL (130-400); RBC Distribution Width 13.6 % (11.5-14.5); Red Blood Cell (RBC) Count 3.79 mill/uL (4.20-5.40); White Blood Cell (WBC) Count 4.2 thou/uL (4.8-10.8)
[2021-01-04 12:02] LABS: Band 2 % (5-11); Eosinophils 1 % (0-10); Lymphocytes 45 % (21-51); MDiff Complete? YES; Monocytes 7 % (0-10); Neutrophil 35 % (42-75); Ovalocytes SLIGHT = 2-5 cells (100X) (0-1/hpf); Platelet Morphology Comment Appears Adequate; Reactive Lymphocytes 10 % (0-10)
[2021-01-04 12:10] LABS: Albumin 4.1 g/dL (3.5-5.0)
[2021-01-04 12:12] LABS: Calcium 9.5 mg/dL (7.8-10.44); Chloride 103 mmol/L (98-107); Potassium 4.1 mmol/L (3.5-5.1); Sodium 138 mmol/L (136-145)
[2021-01-04 12:13] LABS: Globulin 3.1 g/dL (2.4-3.5); Glucose 309 mg/dL (70-105); Protein, Total 7.2 g/dL (6.0-8.3)
[2021-01-04 12:14] LABS: Anion Gap 18 mmol/L (10-20); Carbon Dioxide 21 mmol/L (22-29)
[2021-01-04 12:15] LABS: Bilirubin, Total 0.4 mg/dL (0.2-1.2)
[2021-01-04 12:16] LABS: Alkaline Phosphatase 57 U/L (40-110); Calc. Creatinine Clearance 0 mL/min (70-130)
[2021-01-04 12:17] LABS: BUN (Urea Nitrogen) 10 mg/dL (9.8-20.1)
[2021-01-04 12:18] LABS: AST (SGOT) 42 U/L (5-34)
[2021-01-04 12:19] LABS: ALT (SGPT) 41 U/L (8-55); CK (CPK) 207 U/L (29-168); Lipase 51 U/L (8-78)
== END 2021-01-04 12:55 | disposition home or self-care (01) ==
LOC: ERS 10:50
DX: R07.89 Other chest pain (principal); M25.512 Pain in left shoulder; I25.10 Atherosclerotic heart disease of native coronary artery without angina pectoris; I25.2 Old myocardial infarction; E11.42 Type 2 diabetes mellitus with diabetic polyneuropathy; E78.5 Hyperlipidemia, unspecified; E78.00 Pure hypercholesterolemia, unspecified; I10 Essential (primary) hypertension; Z79.4 Long term (current) use of insulin
CPT/HCPCS: 36415; 71045; 80053; 82550; 83690; 83880; 84484; 85025; 93005

== ENCOUNTER 2021-07-29 09:35 | Observation (INO) | payer MEDICARE ==
[2021-07-29 10:19] LABS: Hemoglobin 12.4 g/dL (12.0-16.0); Mean Corpuscular HGB CONC 34.7 g/dL (32.0-36.0); Mean Corpuscular Hemoglobin 29.1 pg (27.0-31.0); Mean Corpuscular Volume 83.8 fL (78.0-98.0); Mean Platelet Volume 7.4 fL (7.4-10.4); Platelet Count 258 thou/uL (130-400); RBC Distribution Width 13.2 % (11.5-14.5); Red Blood Cell (RBC) Count 4.27 mill/uL (4.20-5.40); White Blood Cell (WBC) Count 4.3 thou/uL (4.8-10.8)
[2021-07-29] MEDS ORDERED: Metoprolol Tartrate 5 MG/5 ML VIAL ONE ×2 (10:30→10:39)
[2021-07-29 10:36] LABS: ALT (SGPT) 59 U/L (8-55); AST (SGOT) 69 U/L (5-34); Albumin 4.1 g/dL (3.5-5.0); Alkaline Phosphatase 73 U/L (40-110); Anion Gap 13 mmol/L (10-20); BUN (Urea Nitrogen) 11 mg/dL (9.8-20.1); Bilirubin, Total 0.4 mg/dL (0.2-1.2); Calc. Creatinine Clearance 0 mL/min (70-130); Carbon Dioxide 25 mmol/L (22-29); Chloride 102 mmol/L (98-107); Globulin 3.7 g/dL (2.4-3.5); Glucose 386 mg/dL (70-105); Lipase 63 U/L (8-78); Protein, Total 7.8 g/dL (6.0-8.3); Sodium 136 mmol/L (136-145)
[2021-07-29 10:39] LABS: Eosinophils 3 % (0-10); Lymphocytes 42 % (21-51); MDiff Complete? YES; Monocytes 7 % (0-10); Neutrophil 39 % (42-75); Ovalocytes SLIGHT = 2-5 cells (100X) (0-1/hpf); Platelet Morphology Comment Appears Adequate; Reactive Lymphocytes 9 % (0-10)
[2021-07-29] MEDS ORDERED: Adenosine 6 MG/2 ML VIAL ONE (10:45)
[2021-07-29] MEDS ORDERED: Aspirin Chewable 81 MG TAB ONE (11:13)
[2021-07-29] MEDS ORDERED: HumaLOG 300 UNITS/3 ML VIAL SC PRN ×2 (11:36→11:37)
[2021-07-29] MEDS ORDERED: Nitroglycerin 0.4 MG TAB (25 Tab Bottle) SL PRN (11:36)
[2021-07-29] MEDS ORDERED: Dextrose 50% Abboject 50 ML SYRINGE SLOW IVP PRN (11:37)
[2021-07-29] MEDS ORDERED: Dextrose 5% in Water 1,000 ML IV PRN (11:37)
[2021-07-29] MEDS ORDERED: Ondansetron PF 4 MG/2 ML Vial IVP PRN (11:37)
[2021-07-29] MEDS ORDERED: Acetaminophen 325 MG TAB PO PRN (11:37)
[2021-07-29 11:55] LABS: Bacteria/HPF 4+ HPF (None Seen); Bilirubin Negative (Negative); Blood, Urine Negative (Negative); Clarity Clear (Clear); Glucose, Urine (Dipstick) Greater than 1000 mg/dL (Negative); Ketone, Urine Negative (Negative); Leukocyte 75 Leu/uL (Negative); Nitrite Negative (Negative); Protein, Urine (Dipstick) Negative (Neg-Trace); RBC/HPF 0-3 HPF (0-3); Urobilinogen Normal mg/dL (Less than 2); WBC/HPF 21-50 HPF (0-3)
[2021-07-29] MEDS ORDERED: Enoxaparin Sodium 40 MG/0.4 ML SYRINGE SC SCH (12:45)
[2021-07-29] MEDS ORDERED: ALPRAZOLAM 0.5 MG PO PRN (12:46)
[2021-07-29 13:24] LABS: SARS-CoV-2 NAA Rapid Test Not Detected (NotDetected)
[2021-07-29 17:37] VITALS: BMI 38.5
[2021-07-29] MEDS: cefTRIAXone\\ROCEPHIN 1 GM in Sodium Chloride 0.9% 100 ML IVPB SCH (18:13)
[2021-07-29] MEDS: metFORMIN 500 MG TAB PO SCH (18:13)
[2021-07-29] MEDS: Simvastatin 10 MG TAB PO SCH (21:38)
[2021-07-29] MEDS: Metoprolol Tartrate 25 MG TAB PO SCH (21:38)
[2021-07-29] MEDS: Famotidine 20 MG TAB PO SCH (21:38)
[2021-07-29] MEDS: Lantus 1000 UNITS/10 ML VIAL SC SCH (21:39)
[2021-07-30 05:18] LABS: ALT (SGPT) 50 U/L (8-55); AST (SGOT) 45 U/L (5-34); Albumin 3.9 g/dL (3.5-5.0); Alkaline Phosphatase 57 U/L (40-110); Anion Gap 13 mmol/L (10-20); BUN (Urea Nitrogen) 9 mg/dL (9.8-20.1); Bilirubin, Total 0.3 mg/dL (0.2-1.2); Calc. Creatinine Clearance 129 mL/min (70-130); Carbon Dioxide 26 mmol/L (22-29); Chloride 104 mmol/L (98-107); Globulin 3.5 g/dL (2.4-3.5); Glucose 167 mg/dL (70-105); Protein, Total 7.4 g/dL (6.0-8.3); Sodium 139 mmol/L (136-145)
[2021-07-30 06:18] LABS: Hemoglobin 11.6 g/dL (12.0-16.0); Mean Corpuscular HGB CONC 34.1 g/dL (32.0-36.0); Mean Platelet Volume 7.4 fL (7.4-10.4); Platelet Count 257 thou/uL (130-400); RBC Distribution Width 13.3 % (11.5-14.5); White Blood Cell (WBC) Count 4.7 thou/uL (4.8-10.8)
[2021-07-30] MEDS: Aspirin 81 mg Enteric Coated Tablet PO SCH (08:46)
[2021-07-30] MEDS: Metoprolol Tartrate 25 MG TAB PO SCH ×2 (08:46→21:35)
[2021-07-30] MEDS: Famotidine 20 MG TAB PO SCH ×2 (08:46→21:35)
[2021-07-30] MEDS: metFORMIN 500 MG TAB PO SCH ×2 (08:46→17:17)
[2021-07-30] MEDS: Valsartan 80 MG TAB PO SCH (08:46)
[2021-07-30] MEDS: Enoxaparin Sodium 40 MG/0.4 ML SYRINGE SC SCH (08:46)
[2021-07-30] MEDS: Lantus 1000 UNITS/10 ML VIAL SC SCH ×2 (08:47→21:35)
[2021-07-30] MEDS ORDERED: Lidocaine 1% (PF) 30 ML VIAL ONE (10:17)
[2021-07-30] MEDS ORDERED: Heparin 10,000 UNITS/ 10 ML VIAL ONE (10:17)
[2021-07-30] MEDS ORDERED: DOPamine 400 MG/D5W 250 ML 0 ML ONE ×2 (10:17)
[2021-07-30] MEDS ORDERED: Isoproterenol 0.2 MG/1 ML AMP ONE (10:39)
[2021-07-30 10:45] LABS: Band 2 % (5-11); Eosinophils 3 % (0-10); Lymphocytes 65 % (21-51); MDiff Complete? YES; Monocytes 9 % (0-10); Neutrophil 20 % (42-75); Platelet Morphology Comment Appears Adequate; Polychromasia SLIGHT = 2-3 cells (100X) (0-2/hpf)
[2021-07-30] MEDS: cefTRIAXone\\ROCEPHIN 1 GM in Sodium Chloride 0.9% 100 ML IVPB SCH (14:30)
[2021-07-30] MEDS: Simvastatin 10 MG TAB PO SCH (21:35)
[2021-07-31] MEDS: Enoxaparin Sodium 40 MG/0.4 ML SYRINGE SC SCH (08:25)
[2021-07-31] MEDS: metFORMIN 500 MG TAB PO SCH (08:25)
[2021-07-31] MEDS: Aspirin 81 mg Enteric Coated Tablet PO SCH (08:25)
[2021-07-31] MEDS: Metoprolol Tartrate 25 MG TAB PO SCH (08:26)
[2021-07-31] MEDS: Famotidine 20 MG TAB PO SCH (08:26)
[2021-07-31] MEDS: Valsartan 80 MG TAB PO SCH (08:26)
[2021-07-31] MEDS: Lantus 1000 UNITS/10 ML VIAL SC SCH (08:34)
[2021-07-31 09:41] VITALS: BP 111/70; TEMP 98.2
== END 2021-07-31 11:30 | disposition home or self-care (01) ==
LOC: ERS 09:35 → INTOOBSV 11:29 → ERHOLD 11:29 → 2NO 17:17
PROVIDERS: ADMIT Internal Medicine; ATTEND Internal Medicine
DX: I47.1 Supraventricular tachycardia (principal); N39.0 Urinary tract infection, site not specified; I10 Essential (primary) hypertension; I25.10 Atherosclerotic heart disease of native coronary artery without angina pectoris; E11.9 Type 2 diabetes mellitus without complications; E78.5 Hyperlipidemia, unspecified; G47.33 Obstructive sleep apnea (adult) (pediatric); I08.8 Other rheumatic multiple valve diseases; E66.01 Morbid (severe) obesity due to excess calories; Z68.38 Body mass index [BMI] 38.0-38.9, adult; Z79.4 Long term (current) use of insulin; Z79.82 Long term (current) use of aspirin; Z79.84 Long term (current) use of oral hypoglycemic drugs; Z79.899 Other long term (current) drug therapy; Z95.1 Presence of aortocoronary bypass graft; Z95.5 Presence of coronary angioplasty implant and graft; Z98.84 Bariatric surgery status; Z98.890 Other specified postprocedural states; Z20.822 Contact with and (suspected) exposure to COVID-19
CPT/HCPCS: 71045; 80053; 82962 ×3; 83690; 84484 ×2; 85025; 87040; 87086; 93005; 93306; 94760; 96372 ×3; 96374 ×2; 96375; 96376; 99285; G0378 ×4; U0002; 36415; 36416; 81003; 81015; 84443; J0153; J0696; J1265; J1644; J1650; J1815; J2001; J3490

== ENCOUNTER → 2021-08-01 | Day surgery (SDC) | payer MEDICARE ==
[2021-07-31 13:34] VITALS: BMI 38.4
[~2021-08-01] MED LIST: DOPamine 400 MG/D5W 250 ML 0 ML ONE; Dexamethasone 20 MG/5 ML VIAL ONE; Glycopyrrolate 0.2 MG/ML 5 ML SYRINGE ONE; Heparin 10,000 UNITS/ 10 ML VIAL ONE; Isoproterenol 0.2 MG/1 ML AMP ONE; Lidocaine 1% (PF) 30 ML VIAL ONE; Lidocaine 1% PF 5 ML VIAL ONE; Ondansetron PF 4 MG/2 ML Vial ONE; PHENYLEPHRINE-NS 100 MCG/ML 10 ML SYRINGE ONE; PROPOFOL 200 MG/20 ML VIAL ONE; Rocuronium Bromide 10 MG/ML (10ML VIAL) ONE
== END ==
LOC: SDC 09:50
PROVIDERS: ATTEND Internal Medicine Cardiovascular Disease
PROC: 02583ZZ Destruction of Conduction Mechanism, Percutaneous Approach (ICD-10-PCS; principal; 2021-08-01)
PROC: 02K83ZZ Map Conduction Mechanism, Percutaneous Approach (ICD-10-PCS; 2021-08-01)
PROC: 4A023FZ Measurement of Cardiac Rhythm, Percutaneous Approach (ICD-10-PCS; 2021-08-01)
PROC: 4A0234Z Measurement of Cardiac Electrical Activity, Percutaneous Approach (ICD-10-PCS; 2021-08-01)
DX: I47.1 Supraventricular tachycardia (principal); I25.10 Atherosclerotic heart disease of native coronary artery without angina pectoris; E11.9 Type 2 diabetes mellitus without complications; I10 Essential (primary) hypertension; N39.0 Urinary tract infection, site not specified; E78.5 Hyperlipidemia, unspecified; G47.33 Obstructive sleep apnea (adult) (pediatric); E66.01 Morbid (severe) obesity due to excess calories; Z68.38 Body mass index [BMI] 38.0-38.9, adult; Z79.02 Long term (current) use of antithrombotics/antiplatelets; Z79.2 Long term (current) use of antibiotics; Z79.4 Long term (current) use of insulin; Z79.84 Long term (current) use of oral hypoglycemic drugs; Z79.899 Other long term (current) drug therapy; Z95.1 Presence of aortocoronary bypass graft; Z95.5 Presence of coronary angioplasty implant and graft; Z98.84 Bariatric surgery status
CPT/HCPCS: 93005; 93613; 93622; 93623; 93653; C1730; C1732 ×2; C1776; J1100; J1265; J1644; J2001; J2405; J2704

== ENCOUNTER 2021-08-25 20:03 | Emergency (ER) | payer MEDICARE ==
[2021-08-25 21:15] LABS: #Eosinphils 0.1 thou/uL (0.0-0.7); #Lymphocytes 1.9 thou/uL (1.20-3.40); #Monocytes 0.4 thou/uL (0.11-0.59); #Neutrophils 2.3 thou/uL (1.40-6.50); %Eosinophils 1.1 % (0.0-10.0); %Lymphocytes 40.1 % (21.0-51.0); %Monocytes 8.6 % (0.0-10.0); %Neutrophils 49.2 % (42.0-75.0); Hemoglobin 11.3 g/dL (12.0-16.0); Mean Corpuscular HGB CONC 33.3 g/dL (32.0-36.0); Mean Corpuscular Hemoglobin 29.1 pg (27.0-31.0); Mean Corpuscular Volume 87.3 fL (78.0-98.0); Mean Platelet Volume 7.4 fL (7.4-10.4); Platelet Count 252 thou/uL (130-400); RBC Distribution Width 13.3 % (11.5-14.5); Red Blood Cell (RBC) Count 3.87 mill/uL (4.20-5.40); White Blood Cell (WBC) Count 4.7 thou/uL (4.8-10.8)
[2021-08-25] MEDS ORDERED: Ketorolac Tromethamine 30 MG/ML VIAL ONE (21:20)
[2021-08-25 21:43] LABS: ALT (SGPT) 48 U/L (8-55); AST (SGOT) 41 U/L (5-34); Albumin 4.4 g/dL (3.5-5.0); Alkaline Phosphatase 60 U/L (40-110); Anion Gap 18 mmol/L (10-20); BUN (Urea Nitrogen) 12 mg/dL (9.8-20.1); Bilirubin, Total 0.3 mg/dL (0.2-1.2); Calc. Creatinine Clearance 0 mL/min (70-130); Carbon Dioxide 24 mmol/L (22-29); Chloride 105 mmol/L (98-107); Globulin 3.2 g/dL (2.4-3.5); Glucose 218 mg/dL (70-105); Potassium 4.1 mmol/L (3.5-5.1); Protein, Total 7.6 g/dL (6.0-8.3); Sodium 143 mmol/L (136-145)
== END 2021-08-25 22:57 | disposition home or self-care (01) ==
LOC: ERS 20:03
DX: R00.0 Tachycardia, unspecified (principal); Z79.899 Other long term (current) drug therapy; Z79.4 Long term (current) use of insulin; Z79.84 Long term (current) use of oral hypoglycemic drugs; E11.42 Type 2 diabetes mellitus with diabetic polyneuropathy; E78.5 Hyperlipidemia, unspecified; E78.00 Pure hypercholesterolemia, unspecified; I10 Essential (primary) hypertension
CPT/HCPCS: 36415; 71045; 80053; 84443; 84484; 85025; 85379; 93005; 96374; J1885

== ENCOUNTER 2021-10-28 13:03 | Emergency (ER) | payer OTHER, MEDICARE | END 2021-10-28 14:45 | disposition home or self-care (01) | LOC: ERS 13:03 | DX: M75.42 Impingement syndrome of left shoulder (principal); I25.2 Old myocardial infarction; I25.10 Atherosclerotic heart disease of native coronary artery without angina pectoris; E78.5 Hyperlipidemia, unspecified; E11.42 Type 2 diabetes mellitus with diabetic polyneuropathy; E78.00 Pure hypercholesterolemia, unspecified; I10 Essential (primary) hypertension; Z95.5 Presence of coronary angioplasty implant and graft; Z79.84 Long term (current) use of oral hypoglycemic drugs; Z79.4 Long term (current) use of insulin; Z79.899 Other long term (current) drug therapy ==

== ENCOUNTER 2022-01-11 10:28 | Outpatient (CLI) | payer MEDICARE | END 2022-01-11 10:29 | disposition home or self-care (01) | LOC: BICMAMMO 10:28 | PROVIDERS: ATTEND Family Medicine | DX: Z12.31 Encounter for screening mammogram for malignant neoplasm of breast (principal); Z91.89 Other specified personal risk factors, not elsewhere classified | CPT/HCPCS: 77063; 77067 ==

== ENCOUNTER 2022-04-15 08:36 | Outpatient (CLI) | payer MEDICARE | END 2022-04-15 08:37 | disposition home or self-care (01) | LOC: ULT 08:36 | PROVIDERS: ATTEND Nurse Practitioner Family | DX: R74.8 Abnormal levels of other serum enzymes (principal); R93.2 Abnormal findings on diagnostic imaging of liver and biliary tract; R16.0 Hepatomegaly, not elsewhere classified | CPT/HCPCS: 76705 ==

== ENCOUNTER 2022-07-13 22:34 | Emergency (ER) | payer MEDICARE ==
[2022-07-13 23:06] LABS: #Lymphocytes 2.4 thou/uL (1.20-3.40); #Monocytes 0.4 thou/uL (0.11-0.59); #Neutrophils 2.7 thou/uL (1.40-6.50); %Basophils 0.5 % (0.0-1.0); %Eosinophils 0.7 % (0.0-10.0); %Lymphocytes 42.9 % (21.0-51.0); Hemoglobin 11.1 g/dL (12.0-16.0); Mean Corpuscular HGB CONC 33.3 g/dL (32.0-36.0); Mean Corpuscular Hemoglobin 28.4 pg (27.0-31.0); Mean Platelet Volume 7.2 fL (7.4-10.4); Platelet Count 244 10x3/uL (130-400); RBC Distribution Width 13.3 % (11.5-14.5); Red Blood Cell (RBC) Count 3.93 mill/uL (4.20-5.40); White Blood Cell (WBC) Count 5.6 10x3/uL (4.8-10.8)
[2022-07-13 23:28] LABS: ALT (SGPT) 82 U/L (8-55); AST (SGOT) 63 U/L (5-34); Albumin 4.4 g/dL (3.5-5.0); Alkaline Phosphatase 65 U/L (40-110); Anion Gap 16 mmol/L (10-20); BUN (Urea Nitrogen) 14 mg/dL (9.8-20.1); Bilirubin, Total 0.3 mg/dL (0.2-1.2); Calc. Creatinine Clearance 0 mL/min (70-130); Calcium 10.2 mg/dL (7.8-10.44); Carbon Dioxide 25 mmol/L (22-29); Chloride 101 mmol/L (98-107); Estimated GFR 52; Globulin 3.4 g/dL (2.4-3.5); Glucose 340 mg/dL (70-105); Potassium 4.3 mmol/L (3.5-5.1); Protein, Total 7.8 g/dL (6.0-8.3); Sodium 138 mmol/L (136-145)
[2022-07-14 00:43] LABS: Bilirubin Negative (Negative); Blood, Urine Negative (Negative); Clarity Clear (Clear); Glucose, Urine (Dipstick) Greater than 1000 mg/dL (Negative); Ketone, Urine 10 mg/dL (Negative); Leukocyte 500 Leu/uL (Negative); Nitrite Negative (Negative); Protein, Urine (Dipstick) 30 mg/dL (Neg-Trace); Specific Gravity, Urine 1.028 (1.002-1.036); Urobilinogen Normal mg/dL (Less than 2); WBC/HPF Greater than 50 HPF (0-3); pH, Urine 5.5 (5.0-9.0)
[2022-07-14 00:54] LABS: Bacteria/HPF 1+ HPF (None Seen)
== END 2022-07-14 04:06 | disposition home or self-care (01) ==
LOC: ERS 22:34
DX: N17.9 Acute kidney failure, unspecified (principal); N39.0 Urinary tract infection, site not specified; E11.9 Type 2 diabetes mellitus without complications; R79.89 Other specified abnormal findings of blood chemistry; I25.10 Atherosclerotic heart disease of native coronary artery without angina pectoris; I25.2 Old myocardial infarction; E78.00 Pure hypercholesterolemia, unspecified; I10 Essential (primary) hypertension; Z79.4 Long term (current) use of insulin; Z79.84 Long term (current) use of oral hypoglycemic drugs; Z79.899 Other long term (current) drug therapy; Z79.82 Long term (current) use of aspirin
CPT/HCPCS: 36415; 80053; 81003; 81015; 85025; 87086; 99283

== ENCOUNTER 2022-11-05 09:03 | Emergency (ER) | payer MEDICARE ==
[2022-11-05 10:01] LABS: #Monocytes 0.6 thou/uL (0.11-0.59); #Neutrophils 2.5 thou/uL (1.40-6.50); %Basophils 0.4 % (0.0-1.0); %Eosinophils 0.4 % (0.0-10.0); %Lymphocytes 35.7 % (21.0-51.0); %Monocytes 11.4 % (0.0-10.0); %Neutrophils 51.9 % (42.0-75.0); Hemoglobin 10.8 g/dL (12.0-16.0); Mean Corpuscular HGB CONC 31.8 g/dL (32.0-36.0); Mean Platelet Volume 9.8 fL (7.4-10.4); Platelet Count 211 10x3/uL (130-400); RBC Distribution Width 14.4 % (11.5-14.5); White Blood Cell (WBC) Count 4.8 10x3/uL (4.8-10.8)
[2022-11-05] MEDS ORDERED: Iopamidol 370 76% 100 ML VIAL ONE (10:06)
[2022-11-05 10:25] LABS: ALT (SGPT) 37 U/L (8-55); AST (SGOT) 26 U/L (5-34); Albumin 4.2 g/dL (3.5-5.0); Alkaline Phosphatase 52 U/L (40-110); Anion Gap 15 mmol/L (10-20); BUN (Urea Nitrogen) 10 mg/dL (9.8-20.1); Bilirubin, Total 0.4 mg/dL (0.2-1.2); Calc. Creatinine Clearance 0 mL/min (70-130); Calcium 9.4 mg/dL (7.8-10.44); Carbon Dioxide 22 mmol/L (22-29); Chloride 103 mmol/L (98-107); Estimated GFR 61; Globulin 3.6 g/dL (2.4-3.5); Glucose 161 mg/dL (70-105); Potassium 3.9 mmol/L (3.5-5.1); Protein, Total 7.8 g/dL (6.0-8.3); Sodium 136 mmol/L (136-145)
[2022-11-05] MEDS ORDERED: Ketorolac Tromethamine 30 MG/ML VIAL ONE (10:28)
[2022-11-05 11:06] LABS: Bacteria/HPF 4+ HPF (None Seen); Bilirubin Negative (Negative); Blood, Urine Negative (Negative); Clarity Turbid (Clear); Glucose, Urine (Dipstick) Normal (Negative); Ketone, Urine Negative (Negative); Leukocyte 500 Leu/uL (Negative); Nitrite Negative (Negative); Protein, Urine (Dipstick) 10 mg/dL (Neg-Trace); RBC/HPF 0-3 HPF (0-3); Specific Gravity, Urine 1.012 (1.002-1.036); Urobilinogen Normal mg/dL (Less than 2); WBC/HPF Greater than 50 HPF (0-3); pH, Urine 5.5 (5.0-9.0)
[2022-11-05] MEDS ORDERED: cefTRIAXone (ROCEPHIN) 2 GM VIAL ONE (11:49)
== END 2022-11-05 12:24 | disposition home or self-care (01) ==
LOC: ERS 09:03
DX: N30.00 Acute cystitis without hematuria (principal); M54.32 Sciatica, left side; I25.10 Atherosclerotic heart disease of native coronary artery without angina pectoris; E11.42 Type 2 diabetes mellitus with diabetic polyneuropathy; I10 Essential (primary) hypertension; E78.00 Pure hypercholesterolemia, unspecified
CPT/HCPCS: 36415; 74177; 80053; 81003; 81015; 85025; 87077; 87086; 87186; 96365; 96375; J0696; J1885; Q9967

== ENCOUNTER 2022-11-09 15:49 | Emergency (ER) | payer MEDICARE ==
[~2022-11-09 15:49] MED LIST changes: -DOPamine 400 MG/D5W 250 ML 0 ML ONE; -Dexamethasone 20 MG/5 ML VIAL ONE; -Glycopyrrolate 0.2 MG/ML 5 ML SYRINGE ONE; -Heparin 10,000 UNITS/ 10 ML VIAL ONE; +Iopamidol-370 76% 500 ML MDV (1 ML CHARGE) ONE; -Isoproterenol 0.2 MG/1 ML AMP ONE; -Lidocaine 1% (PF) 30 ML VIAL ONE; -Lidocaine 1% PF 5 ML VIAL ONE; -Ondansetron PF 4 MG/2 ML Vial ONE; -PHENYLEPHRINE-NS 100 MCG/ML 10 ML SYRINGE ONE; -PROPOFOL 200 MG/20 ML VIAL ONE; -Rocuronium Bromide 10 MG/ML (10ML VIAL) ONE
[2022-11-09 17:38] LABS: Bacteria/HPF None Seen HPF (None Seen); Bilirubin Negative (Negative); Blood, Urine Negative (Negative); Clarity Clear (Clear); Glucose, Urine (Dipstick) Normal (Negative); Ketone, Urine Negative (Negative); Leukocyte 25 Leu/uL (Negative); Nitrite Negative (Negative); Protein, Urine (Dipstick) 30 mg/dL (Neg-Trace); RBC/HPF 0-3 HPF (0-3); Specific Gravity, Urine 1.029 (1.002-1.036); Urobilinogen 3 mg/dL (Less than 2)
[2022-11-09] MEDS ORDERED: Ondansetron PF 4 MG/2 ML Vial ONE (17:53)
[2022-11-09] MEDS ORDERED: Morphine 4 MG/ML VIAL ONE (17:53)
[2022-11-09 17:56] LABS: #Eosinphils 0.1 thou/uL (0.0-0.7); #Monocytes 0.3 thou/uL (0.11-0.59); #Neutrophils 1.4 thou/uL (1.40-6.50); %Basophils 0.7 % (0.0-1.0); %Eosinophils 1.9 % (0.0-10.0); %Lymphocytes 56.8 % (21.0-51.0); %Monocytes 7.4 % (0.0-10.0); %Neutrophils 33.2 % (42.0-75.0); Mean Corpuscular HGB CONC 31.7 g/dL (32.0-36.0); Mean Corpuscular Hemoglobin 26.8 pg (27.0-31.0); Mean Corpuscular Volume 84.4 fl (78.0-98.0); Mean Platelet Volume 9.4 fL (7.4-10.4); Platelet Count 281 10x3/uL (130-400); RBC Distribution Width 13.8 % (11.5-14.5); Red Blood Cell (RBC) Count 4.11 mill/uL (4.20-5.40); White Blood Cell (WBC) Count 4.3 10x3/uL (4.8-10.8)
[2022-11-09 18:20] LABS: ALT (SGPT) 59 U/L (8-55); AST (SGOT) 66 U/L (5-34); Albumin 4.2 g/dL (3.5-5.0); Alkaline Phosphatase 59 U/L (40-110); Anion Gap 14 mmol/L (10-20); BUN (Urea Nitrogen) 10 mg/dL (9.8-20.1); Bilirubin, Total 0.3 mg/dL (0.2-1.2); Calc. Creatinine Clearance 0 mL/min (70-130); Calcium 9.8 mg/dL (7.8-10.44); Carbon Dioxide 24 mmol/L (22-29); Chloride 105 mmol/L (98-107); Estimated GFR 65; Globulin 3.6 g/dL (2.4-3.5); Glucose 157 mg/dL (70-105); Lipase 44 U/L (8-78); Potassium 4.4 mmol/L (3.5-5.1); Protein, Total 7.8 g/dL (6.0-8.3); Sodium 139 mmol/L (136-145)
== END 2022-11-09 19:37 | disposition home or self-care (01) ==
LOC: ERS 15:49
DX: N39.0 Urinary tract infection, site not specified (principal); M54.9 Dorsalgia, unspecified; D72.819 Decreased white blood cell count, unspecified; I25.10 Atherosclerotic heart disease of native coronary artery without angina pectoris; E11.9 Type 2 diabetes mellitus without complications; E11.42 Type 2 diabetes mellitus with diabetic polyneuropathy; I10 Essential (primary) hypertension; Z79.4 Long term (current) use of insulin; Z79.84 Long term (current) use of oral hypoglycemic drugs
CPT/HCPCS: 36415; 74177; 80053; 81003; 81015; 83690; 85025; 87086; 96374; 96375; J2270; J2405; Q9967

== ENCOUNTER 2023-03-04 09:35 | Outpatient (CLI) | payer MEDICARE | END 2023-03-04 09:36 | disposition home or self-care (01) | LOC: BICMAMMO 09:35 | PROVIDERS: ATTEND Family Medicine | DX: Z12.31 Encounter for screening mammogram for malignant neoplasm of breast (principal); Z91.89 Other specified personal risk factors, not elsewhere classified | CPT/HCPCS: 77063; 77067 ==

== ENCOUNTER 2023-03-04 10:04 | Emergency (ER) | payer MEDICARE ==
[2023-03-04] MEDS ORDERED: Aspirin Chewable 81 MG TAB ONE (10:38)
[2023-03-04] MEDS ORDERED: Nitroglycerin 0.4 MG TAB 1 EACH ONE (10:38)
[2023-03-04 10:56] LABS: #Monocytes 0.4 thou/uL (0.11-0.59); #Neutrophils 1.2 thou/uL (1.40-6.50); %Basophils 0.5 % (0.0-1.0); %Eosinophils 0.8 % (0.0-10.0); %Lymphocytes 56.5 % (21.0-51.0); %Monocytes 9.3 % (0.0-10.0); %Neutrophils 32.9 % (42.0-75.0); Hematocrit 35.7 % (36.0-47.0); Hemoglobin 11.6 g/dL (12.0-16.0); Mean Corpuscular HGB CONC 32.5 g/dL (32.0-36.0); Mean Corpuscular Hemoglobin 27.6 pg (27.0-31.0); Mean Corpuscular Volume 84.8 fl (78.0-98.0); Mean Platelet Volume 9.6 fL (7.4-10.4); Platelet Count 243 10x3/uL (130-400); RBC Distribution Width 13.3 % (11.5-14.5); Red Blood Cell (RBC) Count 4.21 mill/uL (4.20-5.40); White Blood Cell (WBC) Count 3.8 10x3/uL (4.8-10.8)
[2023-03-04 11:13] LABS: Bilirubin Negative (Negative); Blood, Urine Trace (Negative); Clarity Extra Turbid (Clear); Glucose, Urine (Dipstick) Normal (Negative); Ketone, Urine Negative (Negative); Leukocyte 500 Leu/uL (Negative); Nitrite Negative (Negative); Protein, Urine (Dipstick) 30 mg/dL (Neg-Trace); Specific Gravity, Urine 1.025 (1.002-1.036); Urobilinogen Normal mg/dL (Less than 2)
[2023-03-04 11:24] LABS: Bacteria/HPF 2+ HPF (None Seen); CAUTI Indications for Culture Dysuria,urgency,freq; RBC/HPF 0-3 HPF (0-3); WBC/HPF 21-50 HPF (0-3)
[2023-03-04 11:26] LABS: Urine Culture Reflex Yes Yes
[2023-03-04 11:39] LABS: Troponin I Less than 0.010 ng/mL (< 0.028)
[2023-03-04 11:43] LABS: ALT (SGPT) 70 U/L (8-55); AST (SGOT) 54 U/L (5-34); Albumin 4.6 g/dL (3.5-5.0); Alkaline Phosphatase 62 U/L (40-110); Anion Gap 13 mmol/L (10-20); BUN (Urea Nitrogen) 13 mg/dL (9.8-20.1); Bilirubin, Total 0.4 mg/dL (0.2-1.2); Calc. Creatinine Clearance 0 mL/min (70-130); Carbon Dioxide 23 mmol/L (22-29); Chloride 104 mmol/L (98-107); Estimated GFR 73; Globulin 3.2 g/dL (2.4-3.5); Glucose 214 mg/dL (70-105); Magnesium 1.9 mg/dL (1.6-2.6); Potassium 4.4 mmol/L (3.5-5.1); Protein, Total 7.8 g/dL (6.0-8.3); Sodium 136 mmol/L (136-145)
[2023-03-04] MEDS ORDERED: Cephalexin 250 MG CAP ONE (12:41)
== END 2023-03-04 12:56 | disposition home or self-care (01) ==
LOC: ERS 10:04
DX: N39.0 Urinary tract infection, site not specified (principal); I25.10 Atherosclerotic heart disease of native coronary artery without angina pectoris; E11.9 Type 2 diabetes mellitus without complications; E78.00 Pure hypercholesterolemia, unspecified; I10 Essential (primary) hypertension; Z79.84 Long term (current) use of oral hypoglycemic drugs; Z79.4 Long term (current) use of insulin; Z79.899 Other long term (current) drug therapy
CPT/HCPCS: 36415; 71045; 80053; 81001; 83735; 83880; 84484; 85025; 87077; 87086; 87186; 93005

== ENCOUNTER 2023-03-20 10:26 | Outpatient (CLI) | payer MEDICARE | END 2023-03-20 10:27 | disposition home or self-care (01) | LOC: BICMRI 10:26 | PROVIDERS: ATTEND Orthopaedic Surgery | DX: M25.512 Pain in left shoulder (principal); M75.122 Complete rotator cuff tear or rupture of left shoulder, not specified as traumatic; S43.432A Superior glenoid labrum lesion of left shoulder, initial encounter ==

== ENCOUNTER 2024-01-13 14:35 | Emergency (ER) | payer MEDICARE | END 2024-01-13 18:16 | disposition home or self-care (01) | LOC: ERS 14:35 | DX: M77.11 Lateral epicondylitis, right elbow (principal); I10 Essential (primary) hypertension; E78.00 Pure hypercholesterolemia, unspecified; E11.42 Type 2 diabetes mellitus with diabetic polyneuropathy; Z87.74 Personal history of (corrected) congenital malformations of heart and circulatory system; Z79.84 Long term (current) use of oral hypoglycemic drugs; Z79.4 Long term (current) use of insulin; Z79.899 Other long term (current) drug therapy ==

== ENCOUNTER 2024-06-10 14:34 | Outpatient (CLI) | payer MEDICARE | END 2024-06-10 14:35 | disposition home or self-care (01) | LOC: BICMAMMO 14:34 | PROVIDERS: ATTEND Family Medicine | DX: Z12.31 Encounter for screening mammogram for malignant neoplasm of breast (principal); Z91.89 Other specified personal risk factors, not elsewhere classified | CPT/HCPCS: 77063; 77067 ==

== ENCOUNTER 2025-02-13 09:53 | Emergency (ER) | payer MEDICARE, OTHER ==
[2025-02-13] MEDS ORDERED: Ketorolac Tromethamine 30 MG (1 mL) VIAL ONE (10:58)
[2025-02-13] MEDS ORDERED: predniSONE 20 MG TAB ONE (11:01)
== END 2025-02-13 11:10 | disposition home or self-care (01) ==
LOC: ERS 09:53
DX: S39.012A Strain of muscle, fascia and tendon of lower back, initial encounter (principal); I10 Essential (primary) hypertension; E11.42 Type 2 diabetes mellitus with diabetic polyneuropathy; X50.0XXA Overexertion from strenuous movement or load, initial encounter
CPT/HCPCS: 96372; 99282; J1885; J7512

== ENCOUNTER 2025-03-30 06:44 | Emergency (ER) | payer OTHER ==
[2025-03-30] MEDS ORDERED: diphenhydrAMINE 50 MG/ML VIAL ONE (07:43)
[2025-03-30] MEDS ORDERED: Metoclopramide HCl 10 MG (2 mL) VIAL ONE (07:43)
[2025-03-30 07:44] LABS: #Basophils Less than 0.03 10x3/uL (0.0-0.2); #Eosinophils 0.06 10x3/uL (0.0-0.7); #Monocytes 0.40 10x3/uL (0.11-0.59); #Neutrophils 1.45 10x3/uL (1.40-6.50); %Basophils 0.5 % (0.0-1.0); %Eosinophils 1.5 % (0.0-10.0); %Lymphocytes 50.4 % (21.0-51.0); %Monocytes 10.3 % (0.0-10.0); %Neutrophils 37.3 % (42.0-75.0); Hematocrit 33.9 % (36.0-47.0); Hemoglobin 10.7 g/dL (12.0-16.0); Mean Corpuscular Hemoglobin 26.6 pg (27.0-31.0); Mean Corpuscular Volume 84.1 fL (78.0-98.0); Platelet Count 230 10x3/uL (130-400); Red Blood Cell (RBC) Count 4.03 mill/uL (4.20-5.40); White Blood Cell (WBC) Count 3.89 10x3/uL (4.8-10.8)
[2025-03-30] MEDS ORDERED: Pantoprazole 40 MG VIAL ONE (07:44)
[2025-03-30 08:00] LABS: ALT (SGPT) 47 U/L (Less than 34); AST (SGOT) 52 U/L (11-34); Albumin 4.0 g/dL (3.1-4.5); Alkaline Phosphatase 54 U/L (40-110); Anion Gap 15 mmol/L (10-20); BUN (Urea Nitrogen) 6 mg/dL (9.8-20.1); Bilirubin, Total 0.3 mg/dL (0.3-1.2); Calc. Creatinine Clearance 0 mL/min (70-130); Calcium 9.3 mg/dL (7.8-10.44); Carbon Dioxide 21 mmol/L (23-31); Chloride 108 mmol/L (98-107); Globulin 3.3 g/dL (2.4-3.5); Glucose 185 mg/dL (80-115); Lipase 55 U/L (8-78); Potassium 3.8 mmol/L (3.5-5.1); Sodium 140 mmol/L (136-145)
[2025-03-30 08:15] LABS: Bacteria/HPF 3+ HPF (None Seen); CAUTI Indications for Culture Pelvic or flank pain; Glucose, Urine (Dipstick) Normal (Negative); Leukocyte 25 Leu/uL (Negative); Protein, Urine (Dipstick) Negative (Neg-Trace); RBC/HPF 0-3 HPF (0-3); Specific Gravity, Urine 1.023 (1.002-1.036)
[2025-03-30 08:17] LABS: Urine Culture Reflex No No
[2025-03-30] MEDS ORDERED: Iopamidol-370 76% 500 ML MDV (1 ML CHARGE) ONE (12:46)
== END 2025-03-30 09:10 | disposition home or self-care (01) ==
LOC: ERS 06:44
DX: K31.84 Gastroparesis (principal); I25.84 Coronary atherosclerosis due to calcified coronary lesion; I10 Essential (primary) hypertension; E11.9 Type 2 diabetes mellitus without complications; I25.10 Atherosclerotic heart disease of native coronary artery without angina pectoris; I25.2 Old myocardial infarction; Z79.4 Long term (current) use of insulin
CPT/HCPCS: 71045; 74177; 80053; 81001; 83690; 84484; 85025; 87086; 93005; J1200; J2470; J2765; Q9967; 96365; 96375

== ENCOUNTER 2025-04-14 16:29 | Emergency (ER) | payer OTHER ==
[2025-04-14] MEDS ORDERED: Ketorolac Tromethamine 30 MG (1 mL) VIAL ONE (17:26)
[2025-04-14] MEDS ORDERED: Ondansetron PF 4 MG/2 ML Vial ONE (17:26)
[2025-04-14] MEDS ORDERED: Acetaminophen 500 MG TAB ONE (17:26)
[2025-04-14 18:00] LABS: #Basophils Less than 0.03 10x3/uL (0.0-0.2); #Eosinophils Less than 0.03 10x3/uL (0.0-0.7); #Monocytes 0.37 10x3/uL (0.11-0.59); #Neutrophils 3.72 10x3/uL (1.40-6.50); %Basophils 0.4 % (0.0-1.0); %Eosinophils 0.4 % (0.0-10.0); %Lymphocytes 14.9 % (21.0-51.0); %Monocytes 7.5 % (0.0-10.0); %Neutrophils 75.8 % (42.0-75.0); Hematocrit 32.9 % (36.0-47.0); Hemoglobin 11.0 g/dL (12.0-16.0); Mean Corpuscular Hemoglobin 27.2 pg (27.0-31.0); Mean Corpuscular Volume 81.4 fL (78.0-98.0); Platelet Count 170 10x3/uL (130-400); Red Blood Cell (RBC) Count 4.04 mill/uL (4.20-5.40); White Blood Cell (WBC) Count 4.91 10x3/uL (4.8-10.8)
[2025-04-14 18:35] LABS: ALT (SGPT) 55 U/L (Less than 34); AST (SGOT) 49 U/L (11-34); Albumin 4.0 g/dL (3.1-4.5); Alkaline Phosphatase 56 U/L (40-110); Anion Gap 14 mmol/L (10-20); BUN (Urea Nitrogen) 8 mg/dL (9.8-20.1); Bilirubin, Total 0.4 mg/dL (0.3-1.2); Calc. Creatinine Clearance 0 mL/min (70-130); Calcium 9.4 mg/dL (7.8-10.44); Carbon Dioxide 24 mmol/L (23-31); Chloride 106 mmol/L (98-107); Globulin 3.4 g/dL (2.4-3.5); Glucose 264 mg/dL (80-115); Lipase 51 U/L (8-78); Magnesium 1.7 mg/dL (1.6-2.6); Potassium 3.9 mmol/L (3.5-5.1); Sodium 140 mmol/L (136-145)
[2025-04-14 18:55] LABS: Bacteria/HPF 1+ HPF (None Seen); CAUTI Indications for Culture Fever or rigors; Glucose, Urine (Dipstick) 500 mg/dL (Negative); Leukocyte Negative Leu/uL (Negative); Protein, Urine (Dipstick) Negative (Neg-Trace); RBC/HPF 0-3 HPF (0-3); Specific Gravity, Urine 1.021 (1.002-1.036); WBC/HPF 0-3 HPF (0-3)
[2025-04-14 18:56] LABS: Urine Culture Reflex No No
== END 2025-04-15 00:58 | disposition home or self-care (01) ==
LOC: ERS 16:29
DX: B34.9 Viral infection, unspecified (principal); I10 Essential (primary) hypertension; E11.9 Type 2 diabetes mellitus without complications; I25.10 Atherosclerotic heart disease of native coronary artery without angina pectoris; I25.2 Old myocardial infarction; E11.42 Type 2 diabetes mellitus with diabetic polyneuropathy; E78.00 Pure hypercholesterolemia, unspecified; Z95.9 Presence of cardiac and vascular implant and graft, unspecified; Z79.899 Other long term (current) drug therapy; Z79.84 Long term (current) use of oral hypoglycemic drugs; Z79.4 Long term (current) use of insulin
CPT/HCPCS: 71045; 74177; 76705; 80053; 81001; 83605; 83690; 83735; 84484; 85025; 87040; 87428; 93005; J1885; J3010; 36415; 96374; 96375

== ENCOUNTER 2025-06-21 23:35 | Emergency (ER) | payer OTHER ==
[2025-06-22 00:08] LABS: Bacteria/HPF None Seen HPF (None Seen); CAUTI Indications for Culture Dysuria,urgency,freq; Glucose, Urine (Dipstick) Greater than 1000 mg/dL (Negative); Leukocyte Negative Leu/uL (Negative); Protein, Urine (Dipstick) Negative (Neg-Trace); RBC/HPF None Seen HPF (0-3); Specific Gravity, Urine 1.023 (1.002-1.036); WBC/HPF 0-3 HPF (0-3)
[2025-06-22 00:10] LABS: Urine Culture Reflex No No
[2025-06-22 00:28] LABS: #Basophils Less than 0.03 10x3/uL (0.0-0.2); #Eosinophils 0.08 10x3/uL (0.0-0.7); #Monocytes 0.35 10x3/uL (0.11-0.59); #Neutrophils 1.31 10x3/uL (1.40-6.50); %Basophils 0.3 % (0.0-1.0); %Eosinophils 2.1 % (0.0-10.0); %Lymphocytes 53.2 % (21.0-51.0); %Monocytes 9.3 % (0.0-10.0); %Neutrophils 34.8 % (42.0-75.0); Hematocrit 32.6 % (36.0-47.0); Hemoglobin 10.3 g/dL (12.0-16.0); Mean Corpuscular Hemoglobin 26.4 pg (27.0-31.0); Mean Corpuscular Volume 83.6 fL (78.0-98.0); Platelet Count 219 10x3/uL (130-400); Red Blood Cell (RBC) Count 3.90 mill/uL (4.20-5.40); White Blood Cell (WBC) Count 3.76 10x3/uL (4.8-10.8)
[2025-06-22 00:44] LABS: ALT (SGPT) 33 U/L (Less than 34); AST (SGOT) 42 U/L (11-34); Albumin 3.9 g/dL (3.1-4.5); Alkaline Phosphatase 64 U/L (40-110); Anion Gap 14 mmol/L (10-20); BUN (Urea Nitrogen) 12 mg/dL (9.8-20.1); Bilirubin, Total 0.2 mg/dL (0.3-1.2); Calc. Creatinine Clearance 0 mL/min (70-130); Calcium 9.8 mg/dL (7.8-10.44); Carbon Dioxide 22 mmol/L (23-31); Chloride 108 mmol/L (98-107); Globulin 3.3 g/dL (2.4-3.5); Glucose 276 mg/dL (80-115); Potassium 4.1 mmol/L (3.5-5.1); Sodium 140 mmol/L (136-145)
== END 2025-06-22 02:23 | disposition home or self-care (01) ==
LOC: ERS 23:35
DX: N39.0 Urinary tract infection, site not specified (principal); I10 Essential (primary) hypertension; E11.42 Type 2 diabetes mellitus with diabetic polyneuropathy; I25.10 Atherosclerotic heart disease of native coronary artery without angina pectoris; I25.2 Old myocardial infarction; Z95.9 Presence of cardiac and vascular implant and graft, unspecified
CPT/HCPCS: 36415; 80053; 81001; 85025; 99283